=== PATIENT | female | born 1970 | race Caucasian/White ===

== ENCOUNTER → 2016-09-29 | Day surgery (SDC) | payer OTHER ==
[2016-09-29 08:02] LABS: HCT 40.3 % (37.0-47.0); HGB 13.4 g/dl (12.5-16.0); MCH 30.6 pg (25.0-31.0); MCHC 33.3 g/dL (32.0-36.0); MPV 9.6 fL (6.0-9.5); RBC 4.38 M/uL (4.20-5.40); RDW 15.8 % (11.5-14.0); WBC 8.8 K/uL (4.0-10.5)
== END | disposition home or self-care (01) ==
LOC: FAS 07:17
PROVIDERS: Obstetrics & Gynecology
DX: D25.0 Submucous leiomyoma of uterus (principal); I10 Essential (primary) hypertension; F17.210 Nicotine dependence, cigarettes, uncomplicated; F32.9 Major depressive disorder, single episode, unspecified; L73.2 Hidradenitis suppurativa; D50.9 Iron deficiency anemia, unspecified; Z88.0 Allergy status to penicillin; Z81.1 Family history of alcohol abuse and dependence; Z82.49 Family history of ischemic heart disease and other diseases of the circulatory system; Z83.3 Family history of diabetes mellitus; Z79.899 Other long term (current) drug therapy; Z98.890 Other specified postprocedural states
CPT/HCPCS: 36415; 84703; 88305; J1100; J1170; J1885; J2405; J2704; J3010

== ENCOUNTER 2021-03-18 19:53 | Emergency (ER) | payer OTHER ==
[~2021-03-18 19:53] MED LIST: ATARAX25 MG PO; MEDROL 4MG DOSEP4 MG PO
[2021-03-18 21:16] LABS: BASOPHIL 1.2 % (0-2); EOSINOPHIL 3.6 % (0-5); HCT 43.7 % (37.0-47.0); HGB 14.5 g/dl (12.5-16.0); LYMPHOCYTE 21.8 % (15-48); MCH 30.7 pg (25.0-31.0); MCHC 33.2 g/dL (32.0-36.0); MCV 92.6 fL (78.0-100.0); MONOCYTE 7.6 % (0-12); MPV 9.9 fL (6.0-9.5); NEUTROPHIL 65.3 % (41-80); NRBC 0; PLT 342 K/uL (150-400); RBC 4.72 M/uL (4.20-5.40); RDW 12.7 % (11.5-14.0); WBC 8.3 K/uL (4.0-10.5)
[2021-03-18 21:29] LABS: BILIRUBIN - TOTAL 0.5 mg/dL (0.2-1.0); BUN/CREAT RATIO (CALC) 18.8 RATIO; CREATININE 0.8 mg/dL (0.51-0.95); GLOBULIN (CALCULATION) 3.3 g/dL; POTASSIUM 3.5 mmol/L (3.5-5.1); TOTAL PROTEIN 7.3 g/dL (6.4-8.2)
[2021-03-18] MEDS ORDERED: ROBAXIN750 MG PO (22:20)
[2021-03-18] MEDS ORDERED: NORCO 5-325 TA1 EACH PO (22:20)
[2021-03-18] MEDS ORDERED: MEDROL 4MG DOSEP4 MG PO (22:20)
== END 2021-03-18 22:45 | disposition home or self-care (01) ==
LOC: FER 19:53
PROVIDERS: Emergency Medicine
DX: M54.42 Lumbago with sciatica, left side (principal); Z88.0 Allergy status to penicillin; Z79.899 Other long term (current) drug therapy
CPT/HCPCS: 36415; 71250; 72131; 72192; 80053; 85025; J1170; J1885; J2405

== ENCOUNTER 2021-10-05 11:00 | Emergency (ER) | payer OTHER ==
[~2021-10-05 11:00] MED LIST changes: +MELOXICAM15 MG PO; +NEURONTIN300 MG PO; +NORCO 5-325 TA1 EACH PO; +ROBAXIN750 MG PO
[2021-10-05 12:09] LABS: BILIRUBIN NEGATIVE (NEGATIVE); BLOOD NEGATIVE Ery/uL (NEGATIVE); CLARITY CLEAR (CLEAR); COLOR YELLOW (YELLOW); GLUCOSE (U) NORMAL (NORMAL); LEUKOCYTES NEGATIVE Leu/uL (NEGATIVE); NITRITE NEGATIVE (NEGATIVE); PROTEIN NEGATIVE (NEGATIVE); UROBILINOGEN 0.2 mg/dL (0.2-1.0)
[2021-10-05 12:12] LABS: ECSTASY (MDMA) NEGATIVE (NEGATIVE); MARIJUANA (THC) NEGATIVE (NEGATIVE); METHADONE NEGATIVE (NEGATIVE); OPIATES NEGATIVE (NEGATIVE)
[2021-10-05 12:13] LABS: AMPHETAMINES POSITIVE (NEGATIVE); BARBITURATES NEGATIVE (NEGATIVE); OXYCODONE NEGATIVE (NEGATIVE)
[2021-10-05] MEDS ORDERED: CYCLOBENZAPRINE10 MG PO (12:29)
== END 2021-10-05 12:58 | disposition home or self-care (01) ==
LOC: FER 11:00
PROVIDERS: Emergency Medicine
DX: M54.50 Low back pain, unspecified (principal); G89.29 Other chronic pain; I10 Essential (primary) hypertension; Z88.8 Allergy status to other drugs, medicaments and biological substances; Z88.0 Allergy status to penicillin
CPT/HCPCS: 80305; 81003; 99283; J1885

== ENCOUNTER 2022-02-04 13:44 | Emergency (ER) | payer OTHER ==
[~2022-02-04 13:44] MED LIST changes: +CYCLOBENZAPRINE10 MG PO
[2022-02-04 14:31] LABS: BASOPHIL 0.9 % (0-2); EOSINOPHIL 0.7 % (0-5); HCT 40.9 % (37.0-47.0); HGB 13.8 g/dl (12.5-16.0); LYMPHOCYTE 3.7 % (15-48); MCH 30.9 pg (25.0-31.0); MCHC 33.7 g/dL (32.0-36.0); MCV 91.5 fL (78.0-100.0); MONOCYTE 6.7 % (0-12); NEUTROPHIL 87.3 % (41-80); NRBC 0; PLT 251 K/uL (150-400); RBC 4.47 M/uL (4.20-5.40); RDW 12.9 % (11.5-14.0); WBC 5.7 K/uL (4.0-10.5)
[2022-02-04 14:37] LABS: ALBUMIN 3.8 g/dL (3.4-5.0); BILIRUBIN - TOTAL 0.3 mg/dL (0.2-1.0); BUN/CREAT RATIO (CALC) 10.8 RATIO; CREATININE 0.65 mg/dL (0.51-0.95); GLOBULIN (CALCULATION) 3.1 g/dL; POTASSIUM 3.2 mmol/L (3.5-5.1); TOTAL PROTEIN 6.9 g/dL (6.4-8.2)
[2022-02-04 16:59] LABS: BILIRUBIN NEGATIVE (NEGATIVE); BLOOD TRACE-LYSED Ery/uL (NEGATIVE); CLARITY CLEAR (CLEAR); COLOR YELLOW (YELLOW); GLUCOSE (U) NORMAL (NORMAL); LEUKOCYTES NEGATIVE Leu/uL (NEGATIVE); NITRITE NEGATIVE (NEGATIVE); PROTEIN NEGATIVE (NEGATIVE); SPECIFIC GRAVITY 1.025 (1.001-1.030); UROBILINOGEN 0.2 mg/dL (0.2-1.0); pH 6.5 (5.0-9.0)
[2022-02-04 17:01] LABS: AMPHETAMINES POSITIVE (NEGATIVE); BARBITURATES NEGATIVE (NEGATIVE); ECSTASY (MDMA) POSITIVE (NEGATIVE); MARIJUANA (THC) POSITIVE (NEGATIVE); METHADONE NEGATIVE (NEGATIVE); OPIATES NEGATIVE (NEGATIVE); OXYCODONE NEGATIVE (NEGATIVE)
[2022-02-04 17:05] LABS: MUCOUS MODERATE
== END 2022-02-04 17:59 | disposition home or self-care (01) ==
LOC: FER 13:44
PROVIDERS: Emergency Medicine
DX: U07.1 COVID-19 (principal); F19.10 Other psychoactive substance abuse, uncomplicated; I10 Essential (primary) hypertension; F17.200 Nicotine dependence, unspecified, uncomplicated; Z28.310 Unvaccinated for COVID-19; Z88.0 Allergy status to penicillin; Z79.899 Other long term (current) drug therapy
CPT/HCPCS: 36415; 70450; 70486; 71045; 80053; 80305; 81001; 83605; 85025; J7030; U0002